=== PATIENT | male | born 1980 | race African-American/Black ===

== ENCOUNTER 2017-01-02 21:55 | Emergency (ER) | payer OTHER ==
[~2017-01-02] VITALS: Ht 167.6 cm; Wt 65.0 kg
[~2017-01-02 21:55] MED LIST: FOLI-17 PO; GABA300C10 PO; MAGN400T26 PO; MAGN400T7 PO; MULT-6 PO; MULT-82 PO; NAPR220T77 PO; ONDA8TAB16 SL; OXYC-302 PO; PANT20TA2 PO; THIA100T10 PO
[2017-01-02] MEDS ORDERED: FAMOTIDINE 20 MG/2 ML IVP ONE (23:30)
[2017-01-02] MEDS ORDERED: SODIUM CHLORIDE 0.9% 1,000ML IVBOLUS ONE (23:30)
[2017-01-02] MEDS ORDERED: ONDANSETRON 2MG/ML, 2ML IVPush ONE (23:30)
[2017-01-02] MEDS ORDERED: SODIUM CHLORIDE FLUSH 10ML SYR IVF ONE (23:30)
[2017-01-03 00:02] LABS: HEMOGLOBIN 15.3 g/dL (13.7-18.0)
[2017-01-03] MEDS ORDERED: HYDROmorphone 1 MG/ML, 1ML ONE ×2 (00:10→01:42)
[2017-01-03] MEDS ORDERED: FAMOTIDINE 20 MG/2 ML ONE (00:10)
[2017-01-03] MEDS ORDERED: ONDANSETRON 2MG/ML, 2ML ONE (00:10)
[2017-01-03 00:12] LABS: ASPARTATE AMINO TRANSFERASE 28 U/L (15-37); BLOOD UREA NITROGEN 9 mg/dL (7-18)
[2017-01-03] MEDS ORDERED: OMEP-110 PO (00:21)
[2017-01-03] MEDS: HYDROmorphone 1 MG/ML, 1ML IVPush PRN ×2 (00:22→01:44)
[2017-01-03 03:20] VITALS: BP 115/85
== END 2017-01-03 03:36 | disposition home or self-care (01) ==
LOC: ED 23:59
DX: R10.11 Right upper quadrant pain (principal); R10.13 Epigastric pain; R10.84 Generalized abdominal pain; R11.0 Nausea
CPT/HCPCS: 36415; 76700; 80053; 81003; 83690; 85025; 96361; 96374; 96375; 96376; 99285; J1170; J2405; J7030; S0028

== ENCOUNTER → 2017-01-18 | Outpatient (CLI) | payer OTHER ==
[~2017-01-18] MED LIST changes: +GADOBUTROL 10 MMOL/10 ML VIAL ONE; +OMEP-110 PO
== END | disposition home or self-care (01) ==
LOC: CFH 07:38
PROVIDERS: ATTEND Internal Medicine Gastroenterology
DX: K86.89 Other specified diseases of pancreas (principal)
CPT/HCPCS: 74183; A9585

== ENCOUNTER 2017-08-02 12:07 | Emergency (ER) | payer OTHER ==
[~2017-08-02] VITALS: Ht 167.6 cm; Wt 67.0 kg
[~2017-08-02 12:07] MED LIST changes: -GADOBUTROL 10 MMOL/10 ML VIAL ONE; +MULT-224 PO; -MULT-82 PO
[2017-08-02 12:32] VITALS: BP 124/82
== END 2017-08-02 13:57 | disposition home or self-care (01) ==
LOC: ED 13:51
DX: S51.812D Laceration without foreign body of left forearm, subsequent encounter (principal); X58.XXXD Exposure to other specified factors, subsequent encounter
CPT/HCPCS: 99281

== ENCOUNTER 2017-08-07 04:57 | Emergency (ER) | payer OTHER ==
[~2017-08-07] VITALS: Ht 170.2 cm; Wt 70.1 kg
[2017-08-07 04:58] VITALS: BP 143/88
== END 2017-08-07 05:55 | disposition home or self-care (01) ==
LOC: ED 05:42
DX: S51.812D Laceration without foreign body of left forearm, subsequent encounter (principal); I10 Essential (primary) hypertension; Z87.891 Personal history of nicotine dependence; W26.8XXD Contact with other sharp object(s), not elsewhere classified, subsequent encounter
CPT/HCPCS: 99281